=== PATIENT | male | born 1990 | race Two or more races ===

== ENCOUNTER 2025-09-03 14:16 | Emergency (ER) | payer OTHER ==
[~2025-09-03] VITALS: Ht 170.2 cm; Wt 81.6 kg
[2025-09-03] MEDS ORDERED: KETOROLAC TROMETHAMINE 15 MG INJ ONE (14:34)
[2025-09-03] MEDS ORDERED: ONDANSETRON 4 MG/2 ML VIAL ONE (14:34)
[2025-09-03] MEDS ORDERED: FENTANYL CITRATE 100 MCG/2 ML AMPUL ONE (14:35)
[2025-09-03 14:37] LABS: PLATELET COUNT (AUTO) 309 K/uL (152-348); RED BLOOD CELL COUNT(AUTO) 5.35 MIL/uL (4.06-5.63); RED CELL DISTRIBUTION WIDTH 13.5 % (12.1-16.2); WHITE BLOOD COUNT (AUTO) 11.3 K/uL (3.6-10.2)
[2025-09-03 14:39] LABS: *BLOOD, URINE 3+ (NEGATIVE); *CLARITY,URINE CLEAR (CLEAR); *COLOR,URINE YELLOW (YELLOW); *KETONES,URINE NEGATIVE (NEGATIVE); *PROTEIN,URINE 2+ (NEGATIVE); *UROBILINOGEN,URINE 0.2 E.U./dl (NORMAL); LEUKOCYTE ESTERASE ,URINE NEGATIVE (NEGATIVE); NITRITE, URINE NEGATIVE (NEGATIVE); UGLUCOSE NEGATIVE (NEGATIVE)
[2025-09-03 14:44] LABS: *BILIRUBIN,URIN 1+ (NEGATIVE)
[2025-09-03] MEDS: IV NORMAL SALINE 1000 ML BAG IV ONE (14:45)
[2025-09-03] MEDS: KETOROLAC TROMETHAMINE 15 MG INJ IVP ONE (14:45)
[2025-09-03] MEDS: ONDANSETRON 4 MG/2 ML VIAL IV ONE (14:47)
[2025-09-03] MEDS: FENTANYL CITRATE 100 MCG/2 ML AMPUL IV ONE (14:47)
[2025-09-03 14:48] LABS: CREATININE 1.3 mg/dL (0.6-1.3); SODIUM SERUM 143.0 mmol/L (136-145); UREA NITROGEN, BLOOD 13.0 mg/dL (7-18)
[2025-09-03 14:54] LABS: ASPARTATE AMINOTRANSFERASE 25.0 U/L (15-37); TOTAL PROTEIN, SERUM 8.2 g/dL (6.4-8.2)
[2025-09-03 14:59] LABS: SQUAMOUS EPITHELIAL CELL,UR NONE SEEN /HPF (NONE SEEN)
[2025-09-03 15:06] VITALS: BP 118/81
[2025-09-03] MEDS ORDERED: HYDR-3974 PO (16:05)
[2025-09-03] MEDS ORDERED: ONDA4TAB5 PO (16:05)
[2025-09-03] MEDS ORDERED: IBUP600T51 PO (16:05)
[2025-09-03] MEDS ORDERED: TAMS0.4C PO (16:05)
[2025-09-03 16:36] VITALS: BP 130/88; O2SAT 98
== END 2025-09-03 16:36 | disposition home or self-care (01) ==
LOC: ER 14:24
DX: N13.2 Hydronephrosis with renal and ureteral calculous obstruction (principal)
CPT/HCPCS: 99285; 74176; 96374; 96375; 96361; 80076; 80048; 81001; 83690; 85025; 36415; J1885; J2405; J3010; J7040; A4606; A4663